=== PATIENT | male | born 1960 | race Caucasian/White ===

== ENCOUNTER 2018-01-15 15:35 | Observation (INO) ==
[2018-01-15 16:55] LABS: Basophils # 0.1 K/mcL (0.0-0.2); Basophils % 0.8 %; Eosinophils # 0.2 K/mcL (0.0-0.6); Eosinophils % 2.7 %; Hematocrit 46.1 % (37.5-50.1); Hemoglobin 15.2 g/dL (12.9-16.9); Immature Granulocytes % 0.3 % (0-4); Lymphocytes # 2.4 K/mcL (0.6-4.6); Lymphocytes % 32.7 %; Mean Corpuscular Hemoglobin 31.3 pg (28.0-33.3); Mean Corpuscular Volume 95.1 fL (83.0-100.0); Mean Platelet Volume 10.3 fL (9.4-12.4); Monocytes # 0.8 K/mcL (0.0-1.3); Monocytes % 10.5 %; Neutrophils # 3.9 K/mcL (1.6-8.9); Nucleated Red Blood Cells 0.3 /100 WBC (0); Platelet Count 189 K/mcL (140-400); Red Blood Count 4.85 M/mcL (4.19-5.50); Red Cell Distribution Width 13.1 % (11.5-14.5)
[2018-01-15 17:02] LABS: INR 1.1; Prothrombin Time 11.6 Seconds (9.4-12.1)
[2018-01-15 17:04] LABS: Activated Partial Thrombo Time 34.6 Seconds (26.0-36.0)
[2018-01-15 17:12] LABS: BUN/Creatinine Ratio 12 (6-26); Blood Urea Nitrogen 11 mg/dL (6-20); Calcium 9.8 mg/dL (8.6-10.3); Carbon Dioxide 28 mEq/L (23-29); Chloride 107 mEq/L (98-107); Glucose 83 mg/dL (70-105); Osmolality,Calculated 289 (280-300); Potassium 4.4 mEq/L (3.5-5.1); Sodium 140 mEq/L (136-145); eGFR For Non-African Americans > 60 (> 60)
[2018-01-15] MEDS ORDERED: *HR* Enoxaparin 120 MG/0.8 ML SYRINGE SQ STA (20:27)
--- NOTE | 2018-01-15 20:30 | Emergency Department Note ---
Disposition Clinical Impression: Unstable angina pectoris Disposition: Admitted As Inpatient Condition: Fair Referrals: Juan Pfeiffer DO [Primary Care Provider] - Time of Disposition: 23:28 Chest Pain HPI - General Chief Complaint: ED Chest Pain Stated Complaint: chest pain sent by 's office Time Seen by Provider: 01/15/18 20:03 Source: patient Limitations: no limitations Vital Signs Reviewed: Yes Nursing Notes Reviewed: Yes - History of Present Illness HPI Narrative: 57-year-old male history of CAD, hypertension, hyperlipidemia presents with 2-3 days worsening exertional dyspnea, he feels that throughout the day, worse with exertion patient states that he previously had a OM stent 4 years ago. He does like to follow up with Cardiology at [place], patient's describing worsening shortness of breath, dyspnea, chest pressure throughout the day. He with minimal exertion. Patient states that he did not have any pain or tightness a few weeks ago. Patient denies productive cough, hemoptysis, extremity swelling , hx of PE Pt complaint: chest pain Pain Location: substernal Severity: moderate Severity scale (1-10): 3 Quality: aching, heaviness Pain Radiation: none Improves with: nothing - Related Data Home Medications Medication Instructions Recorded Confirmed Aspirin 81 mg PO DAILY 12/02/17 01/15/18 Atorvastatin [Lipitor] 40 mg PO HS 01/15/18 01/15/18 Lansoprazole [Prevacid] 30 mg PO DAILY 01/15/18 01/15/18 Metoprolol XL (24 HR) Succ [Toprol 25 mg PO DAILY 01/15/18 01/15/18 XL] Multivitamin [One Daily 1 each PO DAILY 01/15/18 01/15/18 Multivitamin] Allergies Allergy/AdvReac Type Severity Reaction Status Date / Time No Known Allergies Allergy Verified 12/02/17 12:39 All systems ED: reviewed and negative except as stated. Review of Systems: As Per HPI Constitutional: Denies: fever, chills Eyes: Denies: eye pain ENT ED: Denies: ear pain Cardiovascular: Reports: as per HPI, chest pain Respiratory: Denies: cough Gastrointestinal: Denies: abdominal pain Genitourinary: Denies: urgency Musculoskeletal: Denies: back pain Integumentary: Denies: rash Chest Pain PMH - Past Medical History Medical history: Reports: hypertension, other (CAD) Surgical history: Reports: non-contributory Psychiatric history: Reports: no psych history - Social History Smoking Status: Current every day smoker Alcohol use: Reports: none Drug use: Reports: none Physical Exam Constitutional: Morbidly obese bearded gentleman with stable vital signs appears in no acute distress Neck: normal inspection, neck is supple, no JVD Resp: normal chest inspection, CTA bilaterally, no resp distress, no wheezes/ rales/rhonchi CV: RRR, no murmurs/gallops/rubs, S1 and S2 heard Extremity: +2 bilateral radial and posterial tibial pulses, no pedal edema GI: normal inspection, Soft, NTND, no peritoneal signs, no palpable abdominal aortic aneurysm Back: normal inspection, no tenderness to palpation Skin: No rashes, skin warm, dry, intact - General Limitations: no limitations General appearance: alert, in no apparent distress Course Course Narrative: 57-year-old male with dyspnea and chest pressure, patient's had intermittent episodes worse with exertion for the last 3-4 days history of CAD his heart score is a 5, given his history concerning symptoms, the patient has symptoms suggestive angina versus stable angina versus unstable, patient will be his CBC BMP troponin basic lab work EKG was read and is unremarkable for acute ischemia Vital Signs Temperature 98.1 F 01/15/18 15:41 Pulse Rate 78 01/15/18 15:41 Respiratory Rate 18 01/15/18 15:41 Blood Pressure 167/106 01/15/18 15:41 O2 Sat by Pulse Oximetry 97 01/15/18 15:41 Temperature 98.1 F 01/15/18 15:41 Pulse Rate 73 01/15/18 19:30 Respiratory Rate 18 01/15/18 19:30 Blood Pressure 156/94 01/15/18 19:30 O2 Sat by Pulse Oximetry 91 01/15/18 19:30 Oxygen Delivery Oxygen Delivery Room Air Chest Pain - MDM Narrative Medical decision making narrative: 57-year-old male with unstable angina treated with Lovenox admitted to the hospital service Dr. Lenz in stable condition no ischemic ekg changes trop negative - Differential Diagnosis Likely: fracture of rib, pneumothorax, stable angina, unstable angina pectoris, atypical chest pain - Medical Records Medical records reviewed: Yes I reviewed the patient's medical records. - Lab Data Lab results reviewed: Yes I reviewed the patient's lab results. Result diagrams: 01/15/18 16:39 01/15/18 16:39 Lab Results 01/15/18 01/15/18 01/15/18 Range/Units 16:39 16:39 16:39 WBC 7.3 (4.3-11.1) K/mcL RBC 4.85 (4.19-5.50) M/mcL Hgb 15.2 (12.9-16.9) g/dL Hct 46.1 (37.5-50.1) % MCV 95.1 (83.0-100.0) fL MCH 31.3 (28.0-33.3) pg MCHC 33.0 (31.6-35.5) g/dL RDW 13.1 (11.5-14.5) % Plt Count 189 (140-400) K/mcL MPV 10.3 (9.4-12.4) fL Immature Gran % 0.3 (0-4) % Seg Neutrophils % 53.0 % Lymphocytes % 32.7 % Monocytes % 10.5 % Eosinophils % 2.7 % Basophils % 0.8 % Neutrophils # 3.9 (1.6-8.9) K/mcL Lymphocytes # 2.4 (0.6-4.6) K/mcL Monocytes # 0.8 (0.0-1.3) K/mcL Eosinophils # 0.2 (0.0-0.6) K/mcL Basophils # 0.1 (0.0-0.2) K/mcL Nucleated RBCs/100 WBC 0.3 H (0) /100 WBC PT 11.6 (9.4-12.1) Seconds INR 1.1 APTT 34.6 (26.0-36.0) Seconds Sodium 140 (136-145) mEq/L Potassium 4.4 (3.5-5.1) mEq/L Chloride 107 (98-107) mEq/L Carbon Dioxide 28 (23-29) mEq/L BUN 11 (6-20) mg/dL Creatinine 0.93 (0.70-1.30) mg/dL Est GFR ( Amer) > 60 (> 60) Est GFR (Non-Af Amer) > 60 (> 60) BUN/Creatinine Ratio 12 (6-26) Glucose 83 (70-105) mg/dL Calculated Osmolality 289 (280-300) Calcium 9.8 (8.6-10.3) mg/dL Troponin I (< 0.04) ng/mL 01/15/18 Range/Units 16:39 WBC (4.3-11.1) K/mcL RBC (4.19-5.50) M/mcL Hgb (12.9-16.9) g/dL Hct (37.5-50.1) % MCV (83.0-100.0) fL MCH (28.0-33.3) pg MCHC (31.6-35.5) g/dL RDW (11.5-14.5) % Plt Count (140-400) K/mcL MPV (9.4-12.4) fL Immature Gran % (0-4) % Seg Neutrophils % % Lymphocytes % % Monocytes % % Eosinophils % % Basophils % % Neutrophils # (1.6-8.9) K/mcL Lymphocytes # (0.6-4.6) K/mcL Monocytes # (0.0-1.3) K/mcL Eosinophils # (0.0-0.6) K/mcL Basophils # (0.0-0.2) K/mcL Nucleated RBCs/100 WBC (0) /100 WBC PT (9.4-12.1) Seconds INR APTT (26.0-36.0) Seconds Sodium (136-145) mEq/L Potassium (3.5-5.1) mEq/L Chloride (98-107) mEq/L Carbon Dioxide (23-29) mEq/L BUN (6-20) mg/dL Creatinine (0.70-1.30) mg/dL Est GFR ( Amer) (> 60) Est GFR (Non-Af Amer) (> 60) BUN/Creatinine Ratio (6-26) Glucose (70-105) mg/dL Calculated Osmolality (280-300) Calcium (8.6-10.3) mg/dL Troponin I < 0.03 (< 0.04) ng/mL - Radiology Data Radiology results reviewed: Yes I reviewed the patient's radiology results. - EKG Data EKG attestation: Yes I reviewed and interpreted this EKG. EKG shows normal: sinus rhythm Rate: normal Rhythm: NSR (72 bpm NE 189QRS 87QTC [address] segment elevations or depressions.) Interpretation: nonspecific ST-T wave changes - Core Measures AMI Core Measures Followed: Yes Heart Score - Score History: Highly Suspicious Age: 45-65 Risk Factors: Equal/Greater than 3 risk factor or history of atherosclerotic disease Troponin: Less than normal limit Attestation Statement - Attestation Attestation: IMin MD, personally evaluated this patient and discussed their management with the resident physician. I reviewed the resident's note and agree with the documented findings, medical decision making, and plan of care. 57-year-old male with known history of coronary artery disease and coronary artery stent presents to the emergency department with a complaint of substernal chest pressure and discomfort which started about 4 or 5 days ago. He developed some pressure with any exertion. No radiation of the discomfort. No diaphoresis. Some mild shortness of breath with exertion. Patient had a coronary artery stent placed approximately 4 years ago. On examination patient is a well-developed obese male in no acute distress. He is alert and oriented 3. There is no cyanosis or diaphoresis. Chest is nontender to palpation. Breath sounds are clear and equal bilaterally. Heart regular rate and rhythm. Abdomen soft and nontender with normal bowel sounds. EKG shows a normal sinus rhythm with a ventricular rate of 74. No acute ST segment elevations or depressions. No arrhythmia or ectopy. Normal EKG. Chest x-ray negative. Labs reviewed and unremarkable. Troponin normal. A repeat EKG obtained and shows a normal sinus rhythm with a ventricular rate of 72 and no acute ischemic changes with no ST elevations or depressions. Normal EKG. Patient with known coronary artery disease presents with increasing chest pain with exertion over the past several days. Patient needs admitted for unstable angina and chest pain rule out HI. The hospitalist, Dr. Lenz, was consulted and accepted admission of the patient.
[2018-01-15] MEDS ORDERED: Aspirin 81 MG TAB.CHEW PO ONE (20:31)
[2018-01-15] MEDS ORDERED: Nitroglycerin 0.4 MG TAB.SUBL SL ONE (21:04)
[2018-01-16] MEDS ORDERED: Naloxone 0.4 MG/ML INJ IVP PRN (00:51)
[2018-01-16] MEDS ORDERED: Acetaminophen 325 MG TABLET PO PRN (00:51)
[2018-01-16 01:46] LABS: Basophils # 0.1 K/mcL (0.0-0.2); Basophils % 0.8 %; Eosinophils # 0.2 K/mcL (0.0-0.6); Hemoglobin 14.4 g/dL (12.9-16.9); Immature Granulocytes % 0.3 % (0-4); Lymphocytes # 2.4 K/mcL (0.6-4.6); Lymphocytes % 36.3 %; Mean Corpuscular HGB Conc 32.7 g/dL (31.6-35.5); Mean Corpuscular Volume 94.8 fL (83.0-100.0); Mean Platelet Volume 10.5 fL (9.4-12.4); Monocytes # 0.7 K/mcL (0.0-1.3); Monocytes % 10.4 %; Neutrophils # 3.3 K/mcL (1.6-8.9); Platelet Count 161 K/mcL (140-400); Red Blood Count 4.64 M/mcL (4.19-5.50); Red Cell Distribution Width 13.2 % (11.5-14.5); Segmented Neutrophils % 49.2 %
[2018-01-16 02:10] LABS: BUN/Creatinine Ratio 16 (6-26); Blood Urea Nitrogen 14 mg/dL (6-20); Calcium 9.4 mg/dL (8.6-10.3); Carbon Dioxide 28 mEq/L (23-29); Chloride 106 mEq/L (98-107); Chol/HDL Ratio 3.8 (0-4.9); Cholesterol 136 mg/dL (< 200); Glucose 128 mg/dL (70-105); HDL Cholesterol 36 mg/dL (40-59); LDL Cholesterol,Calculated 71 mg/dL (0-99); Magnesium 1.7 mg/dL (1.6-2.6); Osmolality,Calculated 290 (280-300); Potassium 3.7 mEq/L (3.5-5.1); Sodium 139 mEq/L (136-145); Triglycerides 147 mg/dL (< 150); eGFR For Non-African Americans > 60 (> 60)
--- NOTE | 2018-01-16 03:47 | Internal Med History&Physical ---
Date of Encounter: 01/16/18 Time of Encounter: 01:00 Assessment and Plan (1) Chest pain Current visit: Yes Status: Acute Pt has intermittent chest pain. CXR and EKG is unremarkable. Pt has Hx of CAD s/ p stent, need to r/o ACS. - Cont cardiac monitoring - Track 3 sets of troponin - Echo - Stress test if troponin negative and pt remains pain free. Qualifiers: Chest pain type: precordial pain Qualified Code(s): R07.2 - Precordial pain (2) CAD (coronary artery disease) Current visit: Yes Status: Acute Cont home meds ASA, BB, and atorvastatin. Qualifiers: Coronary Disease-Associated Artery/Lesion type: [place] artery [place] vs. transplanted heart: [place] heart Associated angina: with unstable angina Qualified Code(s): I25.110 - Atherosclerotic heart disease of [place] coronary artery with unstable angina pectoris (3) HTN (hypertension) Current visit: Yes Status: Acute Cont home medications Qualifiers: Hypertension type: essential hypertension Qualified Code(s): I10 - Essential (primary) hypertension (4) DVT prophylaxis Current visit: Yes Status: Acute Pt was given one dose of lovenox 120mg in ER. Will start heparin SC from 18:00 on 01/16 if pt is still in hospital. Internal Medicine - H&P: HPI Chief complaint: chest pain Admitted From: Home Plans for Post Hospital Care: Home History of present illness: Mr. Ho is a 57 year old male with Hx of HTN, CAD s/p stent present to ER for chest pain. Pt has intermittent chest pain since Sunday. The frequency and intensity is progressively getting worse. today since AM he has mid-chest pain, no radiation, pressure like, lasted about 2 hours. Pt denies nausea, SOB, or diaphoresis. Pt was treated with NTG SL, ASA, and lovenox in ER. When I saw pt, he is pain free. Pt was admitted for further monitoring. Past Med Surg Social Fam HX - Past Medical History Medical history: coronary artery disease, hyperlipidemia, hypertension, other Psychiatric history: no psych history - Past Surgical History Surgical History: non-contributory - Social History Smoking Status: Current every day smoker Smokeless Tobacco Status: No Alcohol use: none Drug use: none - Family History Father Living Status: Still Living Hx Family Cardiac Disorders: Yes Internal Medicine - H&P: Meds Aspirin 81 mg PO DAILY 12/02/17 [History] Atorvastatin [Lipitor] 40 mg PO HS 01/15/18 [History] Lansoprazole [Prevacid] 30 mg PO DAILY 01/15/18 [History] Metoprolol XL (24 HR) Succ [Toprol XL] 25 mg PO DAILY 01/15/18 [History] Multivitamin [One Daily Multivitamin] 1 each PO DAILY 01/15/18 [History] 3 Allergy/AdvReac Type Severity Reaction Status Date / Time No Known Allergies Allergy Verified 12/02/17 12:39 All Systems PM: A 10-system review of systems was performed and is negative for pertinent findings except as documented above in the HPI. - Constitutional Vitals: Temp Pulse Resp BP Pulse Ox 99.1 F 61 16 137/86 95 01/15/18 23:44 01/15/18 23:44 01/15/18 23:44 01/15/18 23:44 01/15/18 23:44 General appearance: Present: A&O X 3, no acute distress, answers questions appropriately - Head Head exam: Present: atraumatic, normocephalic - Eye Eye exam: Present: PERRL, conjuntiva pink, sclera anicteric Pupils: Present: PERRL - Neck Neck exam general surgery: Present: supple, trachea midline. Absent: lymphadenopathy - Respiratory Respiratory exam: Present: CTAB. Absent: accessory muscle use, rales, rhonchi, wheezes - Cardiovascular Cardiovascular exam: Present: RRR, +S1, +S2. Absent: diastolic murmur, gallop, rubs, systolic murmur - GI/Abdominal GI/Abdominal exam: Present: normal bowel sounds, soft, no peritoneal signs. Absent: distended, tenderness - Extremities Exam Extremities exam: Present: warm, radial pulses palpable and symmetrical. Absent : calf tenderness, cyanotic, pedal edema - Neurological Exam Neurological exam: Present: CN II-XII intact, oriented X3, no focal deficits. Absent: pronater drift, facial droop, speech deficit - Skin Skin exam: Present: dry, intact Internal Med - H&P Results - Labs CBC & Chem 7: 01/16/18 01:05 01/16/18 01:05 Labs: Short CBC 01/16/18 Range/Units 01:05 WBC 6.6 (4.3-11.1) K/mcL Hgb 14.4 (12.9-16.9) g/dL Hct 44.0 (37.5-50.1) % Plt Count 161 (140-400) K/mcL Neutrophils # 3.3 (1.6-8.9) K/mcL BMP 01/16/18 01:05 Sodium 139 Potassium 3.7 Chloride 106 Carbon Dioxide 28 BUN 14 Creatinine 0.85 Glucose 128 H Calcium 9.4 Cardiac Enzymes 01/16/18 Range/Units 01:05 Troponin I < 0.03 (< 0.04) ng/mL - EKG Data -: EKG Interpreted by Myself EKG shows normal: sinus rhythm Rate: normal
[2018-01-16] MEDS ORDERED: Regadenoson 0.4 MG/5 ML SYRINGE IVP ONE (06:15)
[2018-01-16] MEDS ORDERED: Multivit/Ca/Min/Fe/FA 1 TAB TABLET PO SCH (09:00)
[2018-01-16] MEDS ORDERED: Aspirin 81 MG TAB.CHEW PO SCH (09:00)
[2018-01-16] MEDS ORDERED: Metoprolol XL (24 HR) Succ 25 MG TAB.ER.24H PO SCH (09:00)
--- NOTE | 2018-01-16 11:28 | Event Note ---
Date of Encounter: 01/16/18 Time of Encounter: 10:45 Mr. Ho is a 57-year-old male admitted for chest pain and to ruled out ACS. The patient is a current smoker with a past medical history of hypertension and CAD s/p stent in 2013. The patient was seen and evaluated at bedside. Daughter and family friend is also at bedside. Patient just returned from stress test. Patient admits he feels better at this time. He denies any chest pain, shortness of breath, or difficulty breathing. The daughter at bedside stated that her father presented the same way with intermittent chest pressure, negative troponins, and normal EKG the last time in 2013 when he had stents placed. The patient states that when he had the chest pain, he describes it as a heavy pressure in the middle of his chest that does not radiate or cause any numbness or tingling. He denies any nausea, vomiting, abdominal pain, diaphoresis, or any weaknesses. The patient has no concerns at this time. CONSTITUTIONAL: Alert and oriented X3, well-nourished, well appearing, in no apparent distress HEAD: Normocephalic; atraumatic. EYES: PERRL, no scleral icterus. NOSE: The nose is normal in appearance without rhinorrhea RESP: Wheezes present in the bilateral upper lobes. Normal chest excursion with respiration; no rhonchi, or rales CARD: Regular rhythm, without murmurs, rub or gallop ABD: Non-distended; non-tender, soft,without rigidity, rebound or guarding SKIN: Normal for age and race; warm and dry; no apparent lesions CXR is negative. Initial and repeat troponins are negative. EKG shows sinus rhythm with no acute ischemic changes or ST elevations. Stress tests report reads negative for ischemia. EF >70%. echocardiogram is pending.
--- NOTE | 2018-01-16 16:06 | Discharge Summary ---
<Drake Hermosillo - Last Filed: 01/16/18 16:03> - NOTES TO OUTPATIENT PROVIDER Notes to Outpatient Provider: Mild area of ischemia on stress felt to be related to chronic occulsion of RCA found on [facility] in 2013, patient wishes to go home and follow up with cardiology as an outpatient Orders not resulted at time of discharge: Pending orders 01/16/18 00:54 NM roman perf SPECT multi [NM] Routine Date of Encounter: 01/16/18 Time of Encounter: 16:03 - Discharge Diagnosis (1) Chest pain Priority: Primary Status: Resolved Qualifiers: Chest pain type: precordial pain Qualified Code(s): R07.2 - Precordial pain (2) CAD (coronary artery disease) Priority: Primary Status: Chronic Qualifiers: Coronary Disease-Associated Artery/Lesion type: [place] artery [place] vs. transplanted heart: [place] heart Associated angina: with stable angina Qualified Code(s): I25.118 - Atherosclerotic heart disease of [place] coronary artery with other forms of angina pectoris (3) HTN (hypertension) Priority: Secondary Status: Chronic Qualifiers: Hypertension type: essential hypertension Qualified Code(s): I10 - Essential (primary) hypertension Hospital course: Mr. Ho is a 57 year old male with history of coronary disease was admitted for chest pain. Patient's chest pain was described as a heaviness that was relieved with rest and presented with activity. Patient underwent cardiac testing including echocardiogram and nuclear stress test. Echocardiogram was essentially normal and stress test revealed a mild basilar area of ischemia. 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 The results of the stress test was discussed with the patient and his daughter at length in the discussion included the risks and benefits of further inpatient treatment or following as an outpatient. The patient was felt to be low risk with this was stressed upon the patient that low risk does not mean no risk. We will optimize medical management with aspirin, statin, beta susan, long-acting nitrate. The patient verbalized understanding and wishes to go home and follow-up as an outpatient. The patient will be discharged home in stable condition. Discharge discussed with: patient, family Time spent discussing smoking cessation with patient: 3 to 10 minutes - Time Spent with Patient Total time spent providing and/or coordinating discharge services: 50 minutes - Discharge Medications Prescriptions: Isosorbide MONOnitrate (24 HR) [Imdur] 30 mg PO DAILY #30 tab.er.24h Home Medications: Aspirin 81 mg PO DAILY 12/02/17 [History] Atorvastatin [Lipitor] 40 mg PO HS 01/15/18 [History] Lansoprazole [Prevacid] 30 mg PO DAILY 01/15/18 [History] Metoprolol XL (24 HR) Succ [Toprol Xl] 25 mg PO DAILY 01/15/18 [History] Multivitamin [One Daily Multivitamin] 1 each PO DAILY 01/15/18 [History] Isosorbide MONOnitrate (24 HR) [Imdur] 30 mg PO DAILY #30 tab.er.24h 01/16/18 [ Rx] Allergies/Adverse Reactions: 3 Allergy/AdvReac Type Severity Reaction Status Date / Time No Known Allergies Allergy Verified 12/02/17 12:39 Date of admission: 01/15/18 22:42 Primary care physician: Juan Pfeiffer DO Discharging clinician: Drake Hermosillo Anticipated date of discharge: 01/16/18 - Constitutional Vitals: Temp Pulse Resp BP Pulse Ox 97.8 F 60 16 142/87 96 01/16/18 10:58 01/16/18 10:58 01/16/18 10:58 01/16/18 10:58 01/16/18 10:58 General appearance: Present: A&O X 3, no acute distress, answers questions appropriately - Respiratory Respiratory exam: Present: CTAB. Absent: rales, rhonchi, wheezes - Cardiovascular Cardiovascular exam: Present: RRR. Absent: gallop, rubs, systolic murmur - Extremities Exam Extremities exam: Present: warm. Absent: pedal edema, tenderness - Neurological Exam Neurological exam: Present: alert, CN II-XII intact, oriented X3, no focal deficits - Patient Status Disposition: Home, Self-Care Condition: Fair Functional capacity at discharge: independent ambulation Overall status at discharge: patient is back to baseline - Discharge Instructions Follow Up With: Juan Pfeiffer DO [Primary Care Provider] - 01/23/18 3:00 pm [facility] [Provider Group] (Patient wishes to see Dr. Carpenter of Dr. Dobbs , please schedule 1-2 weeks) Additional Instructions: Please follow-up with your PCP as scheduled. Please follow-up with your technology consultant as scheduled Please resume your home medications. Please take Imdur 30 mg daily. Please return for any new or worsening symptoms. - Diet and Activity Activity: increase activity as tolerated Diet: low salt diet <Elder Feliciano H - Last Filed: 01/16/18 16:34> Orders not resulted at time of discharge: Pending orders 01/16/18 00:54 NM roman perf SPECT multi [NM] Routine Date of Encounter: 01/16/18 Hospital course: Mr. Ho is a 57 year old male - Time Spent with Patient Total time spent providing and/or coordinating discharge services: Date of admission: 01/15/18 22:42 Primary care physician: Juan Pfeiffer DO - Constitutional Vitals: Temp Pulse Resp BP Pulse Ox 98.0 F 76 17 133/85 95 01/16/18 16:09 01/16/18 16:09 01/16/18 16:09 01/16/18 16:09 01/16/18 16:09 - Attending Attestation Okay to discharge and follow-up as outpatient I examined this patient and my medical decision-making was reviewed with the Resident Physician. I agree with the documented findings, disposition and treatment plan as described except to the extent set forth below.
[2018-01-16 16:09] VITALS: BP 133/85
[2018-01-16] MEDS ORDERED: *HR* Heparin 5,000 UNIT/ML VIAL SQ SCH (18:00)
[2018-01-17] MEDS ORDERED: Isosorbide MONOnitrate (24 HR) 30 MG TAB.ER.24H PO SCH (09:00)
--- NOTE | 2018-01-18 10:11 | Electrocardiograph Report ---
[place] [id number] Test Date: 2018-01-15 Pat Name: Hugo Ho Department: 104 Room: 3B Gender: M Scientific Manager: : 1960 Requested By: Nghia Santizo Order Number: [id number] Reading MD: Elian Carpenter DO Measurements Intervals [place] Rate: 74 P: 64 [place]: 153 QRS: 56 QRSD: 83 T: 41 QT: 349 QTc: 376 Interpretive Statements SINUS RHYTHM Electronically Signed On 01-18-2018 10:09:37 EST by Elian Carpenter DO
--- NOTE | 2018-01-18 10:23 | Electrocardiograph Report ---
[place] [id number] Test Date: 2018-01-15 Pat Name: Hugo Ho Department: 104 Room: 3B Gender: M Solar Tech: JASON : 1960 Requested By: Jorden Cardenas Order Number: [id number] Reading MD: Elian Carpenter DO Measurements Intervals [place] Rate: 72 P: 76 [place]: 189 QRS: 62 QRSD: 87 T: 42 QT: 382 QTc: 405 Interpretive Statements SINUS RHYTHM Electronically Signed On 01-18-2018 10:22:03 EST by Elian Carpenter DO
== END 2018-01-16 17:00 | disposition home or self-care (01) ==
LOC: EMEROO 15:35 → 3NENU 15:35 → 3BNU 01-16 10:37
PROVIDERS: ADMIT Internal Medicine; ATTEND Family Medicine